=== PATIENT | female | born 1975 | race Caucasian/White ===

== ENCOUNTER 2016-08-28 18:57 | Observation (INO) | payer BC ==
--- NOTE | ~2016-08-28 | DS ---
Discharge Summary [facility] [address] [place]. [address] NAME: BRYNN ELDRIDGE : 77 STATUS : DIS Gregoria PAT#: [id number] AGE: 41 ADM/REG DATE : 08/28/16 MR#: [id number] REPORT SERV DATE: 08/30/16 DICTATED BY: JR. VALENCIA WILLIAM JOHN DATE: 08/29/16 REPORT STATUS : Draft TRANSCRIBED BY: CHRISTOFER DATE: 08/29/16 ADMISSION DATE: 08/28/2016 DISCHARGE DATE: 08/29/2016 INTERNAL MEDICINE DISCHARGE SUMMARY DISCHARGE DIAGNOSES: Include: 1. Right middle lobe community-acquired pneumonia. 2. Multiple recent infections with depressed immunoglobulin levels including IgA, IgM, and IgG. 3. Hypokalemia. 4. Microcytic anemia. 5. Depressed TSH. 6. Pleuritic chest pain. OPERATIONS, PROCEDURES, AND TREATMENTS: Include: 1. PA lateral chest x-ray done on 08/28/2016, which showed acute right middle lobe pneumonia. Recommend followup to exclude tumor or blockage of the bronchus. 2. CT angiogram of the chest done on 08/28/2016, which showed dense airspace consolidation containing air bronchograms in the right middle lobe and less extensive airspace consolidation in the right upper lobe consistent with right upper and middle lobe pneumonia. Recommend followup delayed PA and lateral chest x-ray. There was also minor pleural-based focal fibrosis. There was no evidence of pulmonary embolism. 3. Pelvic ultrasound done on 08/29/2016 was unremarkable. DISCHARGE MEDICATIONS: Include cefdinir 500 mg orally twice a day for five days. HOSPITAL COURSE: The patient is a 41-year-old white female who presented to the emergency room with complaint of shortness of breath and chest pain. The patient became ill about one week prior. She went to her primary care physician, was given a shot of IV Rocephin, placed on oral doxycycline without relief. She had right-sided chest discomfort with breathing with radiation to shoulders and "deep in my lung," sharp in quality, exacerbated by coughing. She had a temperature up to 100.5 at home. Denied other complaints. Exam was remarkable for a temperature of 98.2, heart rate 118, respiratory rate of 16, blood pressure 135/66, and saturating 100% on room air. She had diminished breath sounds in the right base with egophony and some dullness to percussion. White blood count was initially 18.1. Chest x-ray and CT angiogram are detailed above. The patient was admitted to the Clinical Decision Unit for community-acquired pneumonia. Blood cultures were obtained, and the patient was placed on IV Rocephin and azithromycin. I saw her on 08/29/2016. The patient initially complained of severe pleuritic chest pain, requiring IV morphine. We discussed the need to keep her hospitalized until her pain was controlled. The patient was in complete agreement with that in the morning, however, I was called back to the room at approximately 3:00 p.m. that the patient wanted to go home and that her pain had resolved. The patient verifies this to me and strongly desires discharge home. Therefore, we will discharge her on cefdinir to complete a five-day course. As Discharge Summary [address] [place]. [address] NAME: BRYNN ELDRIDGE : 77 STATUS : DIS Gregoria PAT#: [id number] AGE: 41 ADM/REG DATE : 08/28/16 MR#: [id number] REPORT SERV DATE: 08/30/16 DICTATED BY: JR. VALENCIA WILLIAM JOHN DATE: 08/29/16 REPORT STATUS : Draft TRANSCRIBED BY: CHRISTOFER DATE: 08/29/16 detailed above, the patient will need a followup PA and lateral chest x-ray by her primary care provider whom she describes as [facility]. She said she sees the same provider every time and will get followup at that point. Regarding the patient's recurrent infections, she had IgA, IgG, and IgM levels drawn all of which were low below detectable values. In fact, the IgG was less than 35, IgA was less than 8, IgM was less than 5, raising possibility of common variable immunodeficiency. We will refer her to Immunology, Dr. An Cross as an outpatient for further workup. Regarding the patient's iron deficiency anemia, she had a partially iron deficient anemia. Pelvic ultrasound was unremarkable, may consider further workup as an outpatient. The patient will be discharged home today on a regular diet. Activity as tolerated. She will follow up with Dr. An Cross of Immunology as well as [facility]. FOLLOWUP ISSUES: 1. PA and lateral chest x-ray in one to two weeks to exclude tumor or bronchial obstruction. 2. Follow up TSH and free T4 as her TSH was elevated, however, the patient did not want to stay for further workup. 3. Follow up with Immunology to explore common variable immunodeficiency. 4. For discharge exam and laboratory, please see the daily progress note. WJF/MODL Koby Valencia Jr, MD / [id number] CC: Koby Valencia Jr, MD
--- NOTE | ~2016-08-28 | HP ---
History And Physical [place] [id number] [facility] [place]. [address] NAME: BRYNN ELDRIDGE : 77 STATUS : ADM Gregoria PAT#: [id number] AGE: 41 ADM/REG DATE : 08/28/16 MR#: [id number] REPORT SERV DATE: 08/29/16 DICTATED BY: ERIBERTO CARRASCO DATE: 08/28/16 REPORT STATUS : Draft TRANSCRIBED BY: CHRISTOFER DATE: 08/28/16 DATE OF ADMISSION: 08/28/2016 CHIEF COMPLAINT: A 41-year-old female presenting with shortness of breath and chest pain. HISTORY OF PRESENTING ILLNESS: The patient's history was obtained through careful interview with the patient and , coupled with review of [facility] medical records. The patient became ill about a week ago. She finally went to see her physician on the day prior to admission, was given a shot of IV Rocephin and placed on p.o. doxycycline but has had no relief. She describes right-sided chest discomfort mostly at the base of her lung into her back radiating upwards towards her shoulder and felt "deep in my lung," it is a sharp quality exacerbated by coughing, 10/10 severity. Throughout this week the patient has had shortness of breath characterized by dyspnea on exertion. She has had a cough it has been nonproductive. She describes myalgias, arthralgias, subjective fevers, and chills, with a measured temperature up to 100.5. She has had lightheadedness but no confusion. She does have heavy menstruation often bleeding about 5 days and having to go through many pads, and she is currently on her menstrual cycle. No bright red blood per rectum. No melena. She has had "lots" of nausea and vomiting over the last week with slight loose stools occasionally. No abdominal pain. REVIEW OF SYSTEMS: Otherwise, 14-point review of systems was obtained and was negative. PAST MEDICAL HISTORY: 1. Pneumonia. She has had 4 bouts of pneumonia in the last three years. 2. Urinary tract infection with the pyelonephritis. 3. Salmonella lymph node infection mass 2011. PAST SURGICAL HISTORY: 1. Cholecystectomy. 2. Appendectomy. 3. Necrotic pelvic lymph node 2011. ALLERGIES: NO KNOWN DRUG ALLERGIES. SOCIAL HISTORY: Quit smoking when she was 38 years old. No alcohol abuse. She lives in [place], [place], is , stays at home with her 6 and 8-year-old children. History And Physical [address] [place]. [address] NAME: BRYNN ELDRIDGE : 77 STATUS : ADM Gregoria PAT#: [id number] AGE: 41 ADM/REG DATE : 08/28/16 MR#: [id number] REPORT SERV DATE: 08/29/16 DICTATED BY: ERIBERTO CARRASCO DATE: 08/28/16 REPORT STATUS : Draft TRANSCRIBED BY: CHRISTOFER DATE: 08/28/16 FAMILY HISTORY: Mother of end-stage renal disease. Father of heart attack. CURRENT MEDICATIONS: Include Tylenol p.r.n., ibuprofen p.r.n., multivitamin. PHYSICAL EXAMINATION: VITAL SIGNS: Temperature 98.2, pulse 118, blood pressure 135/66, respiratory rate 16, O2 saturation 100% on room air. GENERAL: Pleasant, cooperative female, but she described distress from her pleuritic like chest discomfort. HEENT: Pupils equal, round, and reactive to light. No conjunctival pallor. No scleral icterus. Nares patent. Oropharynx is clear of obstruction. Moist mucous membranes. NECK: Trachea midline. No thyromegaly. LYMPH: No cervical lymphadenopathy. No supraclavicular lymphadenopathy. RESPIRATORY: The patient has diminished breath sounds at the right lung base. I do appreciate a large area of egophony on testing. There may be some dullness to percussion too? although difficult to appreciate. No current wheezes. No rales. The patient has a labored respiratory effort. CARDIOVASCULAR: Tachycardic, regular rhythm. No murmurs, rubs, or gallops. No current extremity edema is appreciated. ABDOMEN: Soft, nontender, nondistended. Normal bowel sounds auscultated throughout. No hepatosplenomegaly. DERMATOLOGICAL: Warm and dry. EXTREMITIES: No pallor. No cyanosis. PSYCHIATRIC: Normal affect. Good mood. Alert and oriented x3. LABORATORY DATA: White blood count 18.3, hemoglobin 10, hematocrit 30, platelets 615. MCV 70, sodium 138, potassium 2.7, chloride 95, bicarb 29, BUN 11, creatinine 2.93, glucose 93. D-dimer elevated at 1.0, albumin 2.9, alkaline phosphatase 232. STUDIES: 1. Chest x-ray by my own evaluation shows dense right lower lung pneumonia with or possible effusion? 2. EKG by my own evaluation shows sinus tachycardia. ASSESSMENT AND PLAN: 1. Community-acquired pneumonia. Check blood cultures. Place on IV antibiotics. Check a CT angiogram of the chest to rule out pulmonary embolism, pleural effusion. 2. Recurrent infections for previous pneumonias over last three years plus a salmonella infection which I would like to check immunoglobulins to rule out a condition such as common variable immunodeficiency? 3. Hypokalemia likely secondary to vomiting. Replace potassium. Check magnesium. Place on telemetry bed. 4. Microcytic anemia. Check iron studies. Likely the patient is anemic from menorrhagia. We will check a pelvic ultrasound. History And Physical [address] [address] NAME: BRYNN ELDRIDGE : 77 STATUS : ADM Gregoria PAT#: [id number] AGE: 41 ADM/REG DATE : 08/28/16 MR#: [id number] REPORT SERV DATE: 08/29/16 DICTATED BY: ERIBERTO CARRASCO DATE: 08/28/16 REPORT STATUS : Draft TRANSCRIBED BY: CHRISTOFER DATE: 08/28/16 TIFFANI/CHRISTOFER Eriberto Carrasco M.D. / [id number] CC: Koby Valencia Jr, MD David Phillips, M.D.
[2016-08-28 18:22] LABS: BASOPHILS 0.2 %; BASOPHILS ABSOLUTE 0.04 10/3/uL (0.0-0.16); EOSINOPHILS ABSOLUTE 0.36 10/3/uL (0.0-0.53); ER CBC TAT 0 Hrs 03 Mins; HEMATOCRIT 30.4 % (36.0-48.0); HEMOGLOBIN 10.1 g/dL (12.0-16.0); IMMATURE GRANULOCYTES 0.4 %; IMMATURE GRANULOCYTES ABSOLUTE 0.08 10/3/uL (0.0-0.11); LYMPHOCYTES ABSOLUTE 4.39 10/3/uL (0.67-4.30); MEAN CORPUS HGB CONC 33.2 g/dL (32.0-36.0); MEAN CORPUSCULAR VOLUME 72.2 fL (80-100); MONOCYTES 4.5 %; MONOCYTES ABSOLUTE 0.82 10/3/uL (0.21-1.20); NEUTROPHILS 68.9 %; NEUTROPHILS ABSOLUTE 12.62 10/3/uL (2.02-8.40); PLATELET COUNT 615 10/3/uL (150-400); RBC DISTRIBUTION WIDTH 16.5 % (12.0-16.0); RED CELL COUNT 4.21 10/6/uL (4.0-5.6); WHITE BLOOD CELLS 18.3 10/3/uL (4.5-10.5)
[2016-08-28 18:23] LABS: MANUAL DIFF NO %
[2016-08-28 18:29] LABS: INFLUENZA A SCREEN NEGATIVE (NEGATIVE); INFLUENZA B SCREEN NEGATIVE (NEGATIVE)
[2016-08-28 18:34] LABS: BUN (BLOOD UREA NITROGEN) 11 MG/DL (6-23); CALCIUM, SERUM 9.2 MG/DL (8.5-10.4); CO2 (CARBON DIOXIDE) 29 MMOL/L (24-34); CREATININE 0.93 MG/DL (0.55-1.02); GFR AFRICAN AMERICAN 89 ML/MIN (>=60); GFR NON AFRICAN AMERICAN 77 ML/MIN (>=60); GLUCOSE, SERUM 93 MG/DL (60-99); SGOT(AST) 10 U/L (5-40); SGPT(ALT) 18 U/L (5-65); SODIUM, SERUM 136 MMOL/L (135-148); TOTAL BILIRUBIN 0.3 MG/DL (0-1.2); TOTAL PROTEIN 6.9 G/DL (6.0-8.5)
[2016-08-28 18:35] LABS: A/G RATIO 0.7 (0.7-1.9); ALBUMIN 2.9 G/DL (3.5-5.0); ALKALINE PHOSPHATASE 232 U/L (45-117); CHLORIDE, SERUM 95 MMOL/L (96-112); POTASSIUM, SERUM 2.7 MMOL/L (3.5-5.3)
[~2016-08-28 18:57] MED LIST: ACET500CAP PO; BENTYL10 PO; DENIES HOME MEDS; PRILOSEC40 MG PO
[2016-08-28] MEDS ORDERED: GENPRIL200 MG PO (19:04)
[2016-08-28] MEDS ORDERED: CENTRUM PO (19:04)
[2016-08-28] MEDS ORDERED: ACET500CAP PO (19:04)
[2016-08-29 00:31] LABS: POTASSIUM, SERUM 2.9 MMOL/L (3.5-5.3)
[2016-08-29 05:00] LABS: BASOPHILS 0.3 %; BASOPHILS ABSOLUTE 0.03 10/3/uL (0.0-0.16); EOSINOPHILS 3.2 %; EOSINOPHILS ABSOLUTE 0.35 10/3/uL (0.0-0.53); HEMOGLOBIN 8.6 g/dL (12.0-16.0); IMMATURE GRANULOCYTES 0.4 %; IMMATURE GRANULOCYTES ABSOLUTE 0.04 10/3/uL (0.0-0.11); LYMPHOCYTES 31.8 %; LYMPHOCYTES ABSOLUTE 3.51 10/3/uL (0.67-4.30); MEAN CORPUS HGB CONC 32.3 g/dL (32.0-36.0); MEAN CORPUSCULAR HEMOGLOB 23.8 pg (26.0-34.0); MEAN CORPUSCULAR VOLUME 73.7 fL (80-100); MEAN PLATELET VOLUME 9.1 fL (9.2-13.0); MONOCYTES 6.9 %; MONOCYTES ABSOLUTE 0.76 10/3/uL (0.21-1.20); NEUTROPHILS 57.4 %; NEUTROPHILS ABSOLUTE 6.34 10/3/uL (2.02-8.40); PLATELET COUNT 513 10/3/uL (150-400); RBC DISTRIBUTION WIDTH 16.4 % (12.0-16.0); RED CELL COUNT 3.61 10/6/uL (4.0-5.6)
[2016-08-29 05:01] LABS: HEMATOCRIT 26.6 % (36.0-48.0); MANUAL DIFF NO %
[2016-08-29 05:32] LABS: % IRON SAT 9 % (20-50); A/G RATIO 0.8 (0.7-1.9); ALBUMIN 2.3 G/DL (3.5-5.0); ALKALINE PHOSPHATASE 165 U/L (45-117); BUN (BLOOD UREA NITROGEN) 7 MG/DL (6-23); CALCIUM, SERUM 8.3 MG/DL (8.5-10.4); CHLORIDE, SERUM 102 MMOL/L (96-112); CO2 (CARBON DIOXIDE) 27 MMOL/L (24-34); CREATININE 0.74 MG/DL (0.55-1.02); FERRITIN 101 NG/ML (8-252); GFR AFRICAN AMERICAN 117 ML/MIN (>=60); GFR NON AFRICAN AMERICAN 101 ML/MIN (>=60); GLOBULIN 2.9 G/DL (2.5-4.1); GLUCOSE, SERUM 86 MG/DL (60-99); IRON BINDING CAPACITY 209 MCG/DL (225-410); IRON, SERUM 19 MCG/DL (35-150); POTASSIUM, SERUM 3.2 MMOL/L (3.5-5.3); SGOT(AST) 9 U/L (5-40); SGPT(ALT) 11 U/L (5-65); SODIUM, SERUM 142 MMOL/L (135-148); TOTAL BILIRUBIN 0.3 MG/DL (0-1.2); TOTAL PROTEIN 5.2 G/DL (6.0-8.5); TROPONIN I <0.02 NG/ML (<0.05)
[2016-08-29 06:15] LABS: IMMUNOGLOBULIN A < 8 MG/DL (70-420)
[2016-08-29 06:18] LABS: IMMUNOGLOBULIN G < 35 MG/DL (673-1464); IMMUNOGLOBULIN M < 5 MG/DL (30-270)
[2016-08-29 06:49] LABS: PROCALCITONIN 1.48 ng/mL (<0.5)
[2016-08-29 15:03] LABS: ASCORBIC ACID (UR NOT ORDER) NEG (NEG); BILIRUBIN, URINE NEGATIVE (NEG); KETONE, URINE NEGATIVE (NEG); LEUKOCYTE ESTERASE(NOT OR NEG (NEG); WBC (NOT ORDERED) (RFLEX) 1 (0-5)
[2016-08-29] MEDS ORDERED: OMNICEF300 PO (16:40)
[2016-08-31 13:27] LABS: IMMUNOGLOBULIN D <0.7 mg/dL (<15.4)
[2016-09-01 11:59] LABS: IMMUNOGLOBULIN E <2.0 kU/L (0.0-158.0)
== END 2016-08-29 17:07 | disposition home or self-care (01) ==
LOC: ER 18:57 → CDU1 19:40
PROVIDERS: Hospitalist; Internal Medicine
DX: J18.1 Lobar pneumonia, unspecified organism (principal); D50.9 Iron deficiency anemia, unspecified; E87.6 Hypokalemia; Z87.440 Personal history of urinary (tract) infections; Z90.49 Acquired absence of other specified parts of digestive tract; Z98.890 Other specified postprocedural states; Z87.891 Personal history of nicotine dependence; Z79.899 Other long term (current) drug therapy
CPT/HCPCS: 71020; 71275; 76856; 80053; 81001; 82728; 82784; 82785; 83540; 83550; 83605; 83735; 83880; 84132; 84145; 84443; 84484; 85025; 85379; 87040; 87804; 93005; 94640; 96372; 96374; 96375; 96376; 99285; A9270-GY; G0378; J0456; Q9967